=== PATIENT | female | born 1940 | race Caucasian/White ===

== ENCOUNTER 2017-05-24 14:39 | Emergency (ER) | payer MEDICARE, OTHER ==
[2017-05-24] MEDS ORDERED: Acetaminophen 500 MG TAB ONE (15:53)
--- NOTE | 2017-05-24 15:57 | RAD ---
1 VIEW PELVIS: Date: 05/24/17 HISTORY: Post-traumatic pain. Patient fell today. Right leg pain. COMPARISON: None. FINDINGS: Sacral ala preserved. Bony pelvis intact. Contour of left and right femoral head are maintained on t his single projection. No fracture. IMPRESSION: No post-traumatic change. POS: [facility]
--- NOTE | 2017-05-24 15:58 | RAD ---
RIGHT HIP 2 VIEWS: Date: 05/24/17 HISTORY: Fall. Post-traumatic pain. COMPARISON: None. FINDINGS: Contour of the femoral head is maintained. Hip joint space is preserved. No fracture. IMPRESSION: No fracture. POS: [facility]
--- NOTE | 2017-05-24 16:01 | RAD ---
RIGHT FEMUR 2 VIEWS: Date: 05/24/17 HISTORY: 76-year-old female with right femur pain following a slip and fall. FINDINGS: Mild degenerative changes right hip joint. No acute fracture or dislocation. IMPRESSION: No fracture or dislocation. POS: [facility]
== END 2017-05-24 16:15 | disposition home or self-care (01) ==
LOC: ERS 14:39
DX: S80.11XA Contusion of right lower leg, initial encounter (principal); I10 Essential (primary) hypertension; Z79.82 Long term (current) use of aspirin; Z79.899 Other long term (current) drug therapy; W01.0XXA Fall on same level from slipping, tripping and stumbling without subsequent striking against object, initial encounter
CPT/HCPCS: 72170